=== PATIENT | female | born 1980 | race Caucasian/White ===

== ENCOUNTER 2017-03-15 14:44 | Emergency (ER) | payer OTHER, MEDICARE ==
[~2017-03-15] VITALS: Ht 157.5 cm; Wt 81.8 kg
[~2017-03-15 14:44] MED LIST: Docusate Sodium PO; FOLI0.4T2 PO; Ibuprofen PO; OXYC-284 PO; PREN-121 PO
[2017-03-15 14:45] VITALS: BP 129/82; PULSE 98; RESP 15; O2SAT 98
== END 2017-03-15 17:01 | disposition left against medical advice (07) ==
LOC: SED 14:44
DX: R45.4 Irritability and anger (principal); Z53.21 Procedure and treatment not carried out due to patient leaving prior to being seen by health care provider